=== PATIENT | female | born 1970 | race African-American/Black ===

== ENCOUNTER → 2019-09-06 | Outpatient (CLI) | payer OTHER | LOC: BC 11:44 | PROVIDERS: ATTEND Family Medicine | DX: Z12.31 Encounter for screening mammogram for malignant neoplasm of breast (principal) ==

== ENCOUNTER → 2019-09-07 | Outpatient (CLI) | payer OTHER | LOC: ULTRA 09:44 | PROVIDERS: ATTEND Radiology Diagnostic Radiology | DX: N63.20 Unspecified lump in the left breast, unspecified quadrant (principal); N63.10 Unspecified lump in the right breast, unspecified quadrant; N60.01 Solitary cyst of right breast; N60.02 Solitary cyst of left breast ==

== ENCOUNTER → 2020-09-24 | Outpatient (CLI) | payer OTHER | LOC: BC 09:00 → ULTRA 12:52 → BC 12:52 | PROVIDERS: ATTEND Obstetrics & Gynecology | DX: N60.01 Solitary cyst of right breast (principal); N63.10 Unspecified lump in the right breast, unspecified quadrant ==

== ENCOUNTER 2020-12-03 10:20 | Emergency (ER) | payer OTHER ==
[~2020-12-03] VITALS: Ht 167.6 cm; Wt 66.2 kg
[2020-12-03] MEDS ORDERED: PROAIR HFA8.5 GM INH (10:26)
[2020-12-03] MEDS ORDERED: TESSALON PERLE100 MG PO (10:26)
[2020-12-03 11:10] LABS: MCH 17.4 pg (26.0-34.0)
[2020-12-03 11:12] LABS: HEMATOCRIT 24.3 % (37.0-47.0); MCHC 28.9 g/dL (28.0-37.0); MCV 60.2 fL (80.0-100.0); PLATELET COUNT 643 thou/uL (150-400); RBC 4.04 mil/uL (4.20-5.00); RDW 22.7 % (10.5-14.5); WBC 8.2 thou/uL (4.0-11.0)
[2020-12-03 11:23] LABS: CALCIUM 8.6 mg/dL (8.5-10.1); CREATININE 1.1 mg/dL (0.6-1.0); POTASSIUM 4.3 mmol/L (3.5-5.1)
[2020-12-03 11:28] LABS: ALBUMIN 2.6 g/dL (3.4-5.0); TOTAL BILIRUBIN 0.3 mg/dL (0.2-1.0); TOTAL PROTEIN 7.6 g/dL (6.4-8.2)
[2020-12-03 11:36] LABS: ABSOLUTE NEUTROPHILS 5.7 thou/uL (1.4-8.2); ANISOCYTOSIS 2+; HYPOCHROMASIA 2+; MICROCYTES 2+; PLATELET ESTIMATE INCREASED
[2020-12-03 13:29] VITALS: BP 136/76
== END 2020-12-03 13:29 | disposition home or self-care (01) ==
LOC: ER 10:20
PROVIDERS: Emergency Medicine
DX: U07.1 COVID-19 (principal); M79.604 Pain in right leg; Z98.890 Other specified postprocedural states; Z79.51 Long term (current) use of inhaled steroids; Z79.899 Other long term (current) drug therapy; Z88.2 Allergy status to sulfonamides